=== PATIENT | male | born 2000 | race American Indian/Alaskan Native ===

== ENCOUNTER 2021-11-18 17:41 | Inpatient (IN) ==
--- NOTE | 2021-11-18 17:45 | Emergency Department Note ---
Impression & Plan Depression with suicidal ideation, Alcohol use ED Provider Note NAME: MISAEL HERNANDEZ AGE: 21 SEX: M : 2000 ARRIVES VIA: Walk-In INFORMANT: [Patient][, ] ED PROVIDER(S): [Javier King MD] Chief Complaint: Mental wellness HPI: Patient did present due to concern for mental wellness as the patient has had SI with plan to cut himself. The patient states that he has had a prior attempt in doing so with the intent to kill himself before. Patient was recently released from correction after 6-month stint in correction just this past Wednesday. The patient does have a roommate that he believes may have set some of this off as he is trying to "get back on track" but his roommate still wants to resort to his old ways. Patient does use alcohol and tobacco and does admit to drinking a few beers today. The patient denies any drug use. Patient states his sleep and appetite been poor. No HI. The patient has had auditory hallucinations of unrecognizable voices telling him to harm himself by cutting himself to kill himself. Patient denies any visual hallucinations. Patient does not have any access to guns or weapons. Patient is seeking inpatient treatment. The patient has been inpatient before. ROS: See HPI for pertinent positives and negatives. A total of 10 systems were reviewed and otherwise negative. Past medical history: See below Surgical history: See below Social history: See below Physical Exam: GENERAL: NAD, [wearing a mask,] non-toxic. EYE EXAM: Normal conjunctiva. PERRL, no anisocoria and EOM's grossly intact w/o pain. NECK: Supple, no nuchal rigidity, no adenopathy, non-tender. No signs of meningismus. LUNGS: Clear to auscultation. Normal chest wall mechanics. HEART: NSR, no MRG. ABDOMEN: Abdomen soft, non-tender, normo-active bowel sounds, no masses, no rebound or guarding. BACK: No CVA TTP. SKIN: No rashes and no bruising. UPPER EXTREMITIES: Upper extremities are grossly normal. LOWER EXTREMITIES: Grossly normal, no edema. NEURO EXAM: A&O x3, cranial nerves II-XII grossly intact, normal speech, moves all 4 extremities on command w/o issue. Psych: Positive SI with plan, negative HI, positive AH, negative VH. Differential diagnoses: Mood disorder, infection, hypoglycemia, electrolyte abnormalities, cardiac sources, intracerebral event, toxicologic, trauma, neurologic, as well as other pathologies. Course: Patient was seen and evaluated the bedside. Full history physical exam was performed. MDM: Patient was seen due to concern for mental wellness and was seeking inpatient treatment. Blood work was obtained the patient was he medically cleared he was seen evaluated by psych field nurse case manager. Patient was accepted for inpatient psychiatric treatment to [facility]. MRSA swab was obtained given the patient's recent incarceration. Past Med/Surg History Medical History Depression Surgical History No pertinent past surgical history Social History Smoking Status: Current every day smoker Preferred Language: Kiswahili Communication Ability: Effective Endoscope Technician Required: No Beliefs That Will Affect Care: None Feels Safe at Home: No Assistive Devices: None Allergies Allergies Allergy/AdvReac Type Severity Reaction Status Date / Time No Known Allergies Allergy Verified 11/18/21 20:39 Home Meds Home Medications Medication Instructions Recorded Confirmed No Known Home Medications 11/18/21 11/18/21 Results & Data (ED) Vital Signs Vital Signs - 24 hr 11/18/21 17:58 Temperature 36.9 C Temperature Source Temporal Artery Scan Pulse Rate 112 H Pulse Rhythm Regular Pulse Strength Normal Respiratory Rate 20 Respiratory Effort / Characteristics Non-Labored Spontaneous Respiratory Depth Normal Respiratory Pattern Regular Blood Pressure 129/77 Blood Pressure Mean 94 Blood Pressure Position Sitting Pulse Oximetry 96 Oxygen Delivery Method Room Air Sepsis Recent Fever Within 48 Hours No Sepsis New/Unexplained Change in Mental Status N/A Sepsis Action Taken by Nursing No Action Required Home Medications Current Medication List: was personally reviewed by me Laboratory Data Attestation: I reviewed the patient's lab results. Result diagrams: 11/18/21 18:36 11/18/21 18:36 Lab Results 11/18/21 11/18/21 11/18/21 Range/Units 18:05 18:05 18:20 WBC (4.8-10.8) K/uL RBC (4.7-6.1) M/uL Hgb (14.0-18.0) g/dL Hct (42-52) % MCV (80-100) fL MCH (25-34) pg MCHC (32-36) g/dL RDW Std Deviation (36.4-46.3) fL RDW Coeff of Hansa (11.5-14.5) % Plt Count (130-400) K/uL MPV (7.4-10.4) fL Immature Gran % (Auto) % Neut % (Auto) % Lymph % (Auto) % [place] % (Auto) % Eos % (Auto) % Baso % (Auto) % Neut # (Auto) (1.4-6.5) K/uL Lymph # (Auto) (1.2-3.4) K/uL [place] # (Auto) (0.11-0.59) K/uL Eos # (Auto) (0-0.5) K/uL Baso # (Auto) (0-0.2) K/uL Immature Gran # (Auto) (0.00-0.02) K/uL Sodium (136-145) mmol/L Potassium (3.5-5.1) mmol/L Chloride (98-107) mmol/L Carbon Dioxide (21-32) mmol/L Anion Gap (3-11) BUN (6-23) mg/dl Creatinine (0.6-1.4) mg/dl Est Cr Clr Drug Dosing ml/min Est GFR ( Amer) ml/min Est GFR (Non-Af Amer) ml/min BUN/Creatinine Ratio (10-20) Glucose (70-99(Fasting)) mg/dl Calcium (8.5-10.1) mg/dl Total Bilirubin (0.2-1.0) mg/dl AST (13-39) U/L ALT (7-52) U/L Alkaline Phosphatase (34-104) U/L Total Protein (6.0-8.3) gm/dl Albumin (3.4-5.0) gm/dl Globulin (2.5-4.0) gm/dl Albumin/Globulin Ratio (0.9-2) TSH (0.300-4.500) uIu/ml Urine Color Yellow Urine Appearance Clear (Clear) Urine pH 6.5 (4.5-7.5) Ur Specific [place] 1.015 (1.000-1.030) Urine Protein Negative (Negative) Urine Glucose (UA) Negative (Negative) Urine Ketones Negative (Negative) Urine Blood Negative (Negative) Urine Nitrite Negative (Negative) Urine Bilirubin Negative (Negative) Urine Urobilinogen Negative (Negative) Ur Leukocyte Esterase Negative (Negative) Salicylates (3.0-30) mg/dl Urine Opiates Screen Neg (Neg) Ur Methadone, Qual Neg (Neg) Acetaminophen (10-30) ug/ml Urine Barbiturates Neg (Neg) Ur Phencyclidine (PCP) Neg (Neg) U Amphetamin/Meth Scrn Neg (Neg) MDMA (Ecstasy) Screen Neg (Neg) U Benzodiazepines Scrn Neg (Neg) Ur Cocaine Metabolite Neg (Neg) U Marijuana (THC) Screen Pos H (Neg) Ethyl Alcohol mg/dL (<10.0) mg/dl SARS-CoV-2, RNA, NAAT NEGATIVE (NEGATIVE) 11/18/21 11/18/21 11/18/21 Range/Units 18:36 18:36 18:36 WBC 7.19 (4.8-10.8) K/uL RBC 5.02 (4.7-6.1) M/uL Hgb 15.6 (14.0-18.0) g/dL Hct 45.1 (42-52) % MCV 89.8 (80-100) fL MCH 31.1 (25-34) pg MCHC 34.6 (32-36) g/dL RDW Std Deviation 45.0 (36.4-46.3) fL RDW Coeff of Hansa 13.8 (11.5-14.5) % Plt Count 283 (130-400) K/uL MPV 10.3 (7.4-10.4) fL Immature Gran % (Auto) 0.1 % Neut % (Auto) 48.0 % Lymph % (Auto) 42.6 % [place] % (Auto) 6.5 % Eos % (Auto) 2.4 % Baso % (Auto) 0.4 % Neut # (Auto) 3.45 (1.4-6.5) K/uL Lymph # (Auto) 3.06 (1.2-3.4) K/uL [place] # (Auto) 0.47 (0.11-0.59) K/uL Eos # (Auto) 0.17 (0-0.5) K/uL Baso # (Auto) 0.03 (0-0.2) K/uL Immature Gran # (Auto) 0.01 (0.00-0.02) K/uL Sodium 139 (136-145) mmol/L Potassium 3.5 (3.5-5.1) mmol/L Chloride 106 (98-107) mmol/L Carbon Dioxide 25 (21-32) mmol/L Anion Gap 8 (3-11) BUN 14 (6-23) mg/dl Creatinine 0.91 (0.6-1.4) mg/dl Est Cr Clr Drug Dosing 129.5 ml/min Est GFR ( Amer) 139.1 ml/min Est GFR (Non-Af Amer) 120.0 ml/min BUN/Creatinine Ratio 15.4 (10-20) Glucose 109 H (70-99(Fasting)) mg/dl Calcium 8.9 (8.5-10.1) mg/dl Total Bilirubin 0.3 (0.2-1.0) mg/dl AST 50 H (13-39) U/L ALT 78 H (7-52) U/L Alkaline Phosphatase 76 (34-104) U/L Total Protein 6.9 (6.0-8.3) gm/dl Albumin 4.2 (3.4-5.0) gm/dl Globulin 2.7 (2.5-4.0) gm/dl Albumin/Globulin Ratio 1.6 (0.9-2) TSH 1.000 (0.300-4.500) uIu/ml Urine Color Urine Appearance (Clear) Urine pH (4.5-7.5) Ur Specific [place] (1.000-1.030) Urine Protein (Negative) Urine Glucose (UA) (Negative) Urine Ketones (Negative) Urine Blood (Negative) Urine Nitrite (Negative) Urine Bilirubin (Negative) Urine Urobilinogen (Negative) Ur Leukocyte Esterase (Negative) Salicylates (3.0-30) mg/dl Urine Opiates Screen (Neg) Ur Methadone, Qual (Neg) Acetaminophen (10-30) ug/ml Urine Barbiturates (Neg) Ur Phencyclidine (PCP) (Neg) U Amphetamin/Meth Scrn (Neg) MDMA (Ecstasy) Screen (Neg) U Benzodiazepines Scrn (Neg) Ur Cocaine Metabolite (Neg) U Marijuana (THC) Screen (Neg) Ethyl Alcohol mg/dL (<10.0) mg/dl SARS-CoV-2, RNA, NAAT (NEGATIVE) 11/18/21 11/18/21 Range/Units 18:36 18:36 WBC (4.8-10.8) K/uL RBC (4.7-6.1) M/uL Hgb (14.0-18.0) g/dL Hct (42-52) % MCV (80-100) fL MCH (25-34) pg MCHC (32-36) g/dL RDW Std Deviation (36.4-46.3) fL RDW Coeff of Hansa (11.5-14.5) % Plt Count (130-400) K/uL MPV (7.4-10.4) fL Immature Gran % (Auto) % Neut % (Auto) % Lymph % (Auto) % [place] % (Auto) % Eos % (Auto) % Baso % (Auto) % Neut # (Auto) (1.4-6.5) K/uL Lymph # (Auto) (1.2-3.4) K/uL [place] # (Auto) (0.11-0.59) K/uL Eos # (Auto) (0-0.5) K/uL Baso # (Auto) (0-0.2) K/uL Immature Gran # (Auto) (0.00-0.02) K/uL Sodium (136-145) mmol/L Potassium (3.5-5.1) mmol/L Chloride (98-107) mmol/L Carbon Dioxide (21-32) mmol/L Anion Gap (3-11) BUN (6-23) mg/dl Creatinine (0.6-1.4) mg/dl Est Cr Clr Drug Dosing ml/min Est GFR ( Amer) ml/min Est GFR (Non-Af Amer) ml/min BUN/Creatinine Ratio (10-20) Glucose (70-99(Fasting)) mg/dl Calcium (8.5-10.1) mg/dl Total Bilirubin (0.2-1.0) mg/dl AST (13-39) U/L ALT (7-52) U/L Alkaline Phosphatase (34-104) U/L Total Protein (6.0-8.3) gm/dl Albumin (3.4-5.0) gm/dl Globulin (2.5-4.0) gm/dl Albumin/Globulin Ratio (0.9-2) TSH (0.300-4.500) uIu/ml Urine Color Urine Appearance (Clear) Urine pH (4.5-7.5) Ur Specific [place] (1.000-1.030) Urine Protein (Negative) Urine Glucose (UA) (Negative) Urine Ketones (Negative) Urine Blood (Negative) Urine Nitrite (Negative) Urine Bilirubin (Negative) Urine Urobilinogen (Negative) Ur Leukocyte Esterase (Negative) Salicylates < 3.0 L (3.0-30) mg/dl Urine Opiates Screen (Neg) Ur Methadone, Qual (Neg) Acetaminophen < 3 L (10-30) ug/ml Urine Barbiturates (Neg) Ur Phencyclidine (PCP) (Neg) U Amphetamin/Meth Scrn (Neg) MDMA (Ecstasy) Screen (Neg) U Benzodiazepines Scrn (Neg) Ur Cocaine Metabolite (Neg) U Marijuana (THC) Screen (Neg) Ethyl Alcohol mg/dL 16.8 H (<10.0) mg/dl SARS-CoV-2, RNA, NAAT (NEGATIVE) Administered Medications Olanzapine (Olanzapine 5 Mg Tablet) 5 mg PO HS COUNT INCLUDES THE [facility] Stop: 12/19/21 20:59 Last Admin: 11/19/21 00:20 Dose: 5 mg Documented by: [id number] Discharge Plan Visit Data Chief Complaint: Mental Health Evaluation Stated Complaint: MENTAL HEALTH EVAL, SUICIDAL IDIATIONS ED Provider: Javier King Discharge Problem: Depression with suicidal ideation, Alcohol use Patient Disposition: Admitted As Inpatient Discharge Instructions Interventions: ED Discharge Assessment Last Done: 11/18/21 22:49
[2021-11-18 18:26] LABS: Appearance Urine Clear (Clear); Bilirubin Urine Negative (Negative); Blood Urine Negative (Negative); Color Urine Yellow; Glucose Urine UA Negative (Negative); Ketones Urine Negative (Negative); Leukocyte Esterase Urine Negative (Negative); Nitrite Urine Negative (Negative); Protein Urine Negative (Negative); Specific Gravity Urine 1.015 (1.000-1.030); Urobilinogen Urine Negative (Negative); pH Urine 6.5 (4.5-7.5)
[2021-11-18 18:50] LABS: Basophils # (auto) 0.03 K/uL (0-0.2); Basophils % (auto) 0.4 %; Eosinophils # (auto) 0.17 K/uL (0-0.5); Eosinophils % (auto) 2.4 %; Hematocrit (blood only) 45.1 % (42-52); Hemoglobin 15.6 g/dL (14.0-18.0); Immature Granulocytes # (auto) 0.01 K/uL (0.00-0.02); Immature Granulocytes % (auto) 0.1 %; Lymphocytes # (auto) 3.06 K/uL (1.2-3.4); Lymphocytes % (auto) 42.6 %; Mean Corpuscular Hemoglobin 31.1 pg (25-34); Mean Corpuscular Hgb Conc 34.6 g/dL (32-36); Mean Corpuscular Volume 89.8 fL (80-100); Mean Platelet Volume 10.3 fL (7.4-10.4); Monocytes # (auto) 0.47 K/uL (0.11-0.59); Monocytes % (auto) 6.5 %; Neutrophils # (auto) 3.45 K/uL (1.4-6.5); Platelet Count 283 K/uL (130-400); RDW Coefficient of Variation 13.8 % (11.5-14.5); Red Blood Count 5.02 M/uL (4.7-6.1); White Blood Count 7.19 K/uL (4.8-10.8)
[2021-11-18 18:54] LABS: Amphetamines+Metham, Urine Neg (Neg); Barbiturates, Urine Neg (Neg); Benzodiazepine, Urine Neg (Neg); Cocaine, Urine Neg (Neg); MDMA (Ecstacy), Urine Neg (Neg); Methadone, Urine Neg (Neg); Opiate, Urine Neg (Neg); Phencyclidine, Urine Neg (Neg)
[2021-11-18 19:09] LABS: Albumin Globulin Ratio 1.6 (0.9-2); Albumin Level 4.2 gm/dl (3.4-5.0); BUN Creatinine Ratio 15.4 (10-20); Bilirubin,Total 0.3 mg/dl (0.2-1.0); Calcium 8.9 mg/dl (8.5-10.1); Creatinine Clr Calc Pharmacy 129.5 ml/min; Est GFR (African American) 139.1 ml/min; Globulin 2.7 gm/dl (2.5-4.0); Potassium 3.5 mmol/L (3.5-5.1); Total Protein 6.9 gm/dl (6.0-8.3)
[2021-11-18 19:23] LABS: Acetaminophen < 3 ug/ml (10-30); Salicylate < 3.0 mg/dl (3.0-30)
[2021-11-18] MEDS ORDERED: SODIUM CHLORIDE 0.65% NA SOLN 45 ML (OCEAN) PRN (22:21)
[2021-11-18] MEDS ORDERED: MAGNESIUM HYDROXIDE SUSP 30 ML UDC PO PRN (22:21)
[2021-11-18] MEDS ORDERED: hydrOXYzine HCl 25 MG TAB PO PRN ×2 (22:21)
[2021-11-18] MEDS ORDERED: BISMUTH SUBSALICYLATE LIQD 236 ML PO PRN (22:21)
[2021-11-18] MEDS ORDERED: ACETAMINOPHEN 325 MG TAB PO PRN (22:21)
[2021-11-18] MEDS ORDERED: ALUMINUM/MAGNESIUM SUSP 30 ML UDC PO PRN (22:21)
[2021-11-19] MEDS ORDERED: FLUARIX QUADRIVALENT 0.5 ML SYR IM ONE (09:00)
--- NOTE | 2021-11-19 12:01 | History & Physical ---
Date of Service November 19, 2021 Impression / Recommendations Impression The patient is a 21 year old with a history of MDD, anxiety, BPD, PTSD, and psychosis who was admitted for worsening depression and SI with plans. Diagnostically consistent with BPD, PTSD and MDD likely worsened in context of transition out of detention with new stressors and his concerns related to not violating probation. No current psychosis symptoms, suspect symptoms may be due to BPD. Wellbutrin could be a good medication option in the future for ADHD and MDD but given binging episodes, not appropriate at this time. No evidence for history of romario, periods of decreased sleep but with no other symptoms of m destiney. Discussed treatment and medication options in detail he consented to starting prazosin and escitalopram. Reviewed benefits, risks and side effects including but not limited to low BP, syncope with prazosin and GI, BILLINGS, sexual side effects, potential for romario with escitalopram as well as counseled on black box warning of potential for emergence of or increased SI and need to let staff know should this occur or should they feel unsafe. Also discussed importance of seeking emergency care following discharge if this side effect occurs in the future. The patient is deemed unstable and requires psychiatric hospitalization for diagnostic clarification, safety and stabilization, medication management and development of further coping skills. (1) Depression with suicidal ideation: (2) MDD (major depressive disorder), recurrent episode, moderate: (3) Borderline personality disorder: (4) Post traumatic stress disorder (PTSD): 11/19/20: The patient was admitted to the [facility] ([facility]) on q15 min checks (behavioral with suicide precautions) for safety. The patient will participate in group, recreational, and milieu therapies and will be offered additional individual and family sessions as clinically appropriate. -interested and willing to apply for medical assistance -nicotine gum -prazosin 1mg qhs -trazodone 50mg qhs prn -escitalopram 5mg qd Inventory Assets Strengths: employed, supportive girlfriend Needs: outpatient providers, insurance, improved coping skills Risk Factors Assessment Male: Yes Do You Have Access To A Gun?: No Health Problems: No Mental Health Diagnoses: Yes Substance Use Disorders: No Previous Attempt: Yes Family History of Suicide: No Previous Psychiatric Hospitalization: Yes Hopelessness: Yes Smoker: Yes Protective Factors Assessment Employed: Yes ([employer]) Stable Relationships: Yes Supportive Family: No Psychiatric History Identifying Data MISAEL HERNANDEZ is a 21-year-old man who currently lives in [place] in an apartment with a roommate, was recently incarcerated (~6months, released on 11/11/21), has a history of depression, anxiety, ADHD, PTSD, BPD and psychosis, and was admitted on 11/18/21 22:19 on a 201 voluntary commitment for worsening depression and SI with plan. Chief Complaint "I've been really depressed". History of Present Illness Misael presented to the ED after recent release from detention with worsening depression and SI. He notes multiple stressors including living with a new jessica mmate since his release from detention and relying on this individual for transportation and being "dragged around" to places that made him feel uncomfortable and unsafe. He started to feel depressed, withdrawn and having suicidal thoughts. While in detention he was still depressed but it's gotten worse since his release. He feels the depression has really started since he was released. He endorses symptoms of hopelessness, social isolation, low energy, decreased sleep, decreased appetite, can still happy with music, and SI. The suicidal thoughts have been occurring for months but worsened over the last few days. He's been having plans of cutting himself, running into traffic, or jumping off of bridges and then "I check out and then get really visual and I play out the ways I would ". It usually lasts for about 10 minutes and happens multiple times through the day. Has had some rehearsal behaviors of standing on a bridge in [facility] and sat and looked down about 3 days ago. He came to [place] about 2-3 days ago to see his girlfriend and she was concerned and he worried about being able to remain safe so came to the ED. While in detention he was being prescribed trazodone, geodone and vistaril. He didn't feel like these were very helpful. Psychiatric ROS: + anxiety (past and current) with restlessness; denies any hx of romario (endorses poor sleep prior to admission but felt exhausted and "drained" and "weak"); hx of psychosis of AH and VH "not as much as it used to", denies current AH and VH, heard some voices while in detention (voices of unrecognizable people, negative in nature, can occur with any emotional state); + PTSD flashbacks (few times per month)/nightmares (few times per week)/emotional impact - hypervigilance; +ADHD inattention, - OCD, + restricting food and purging, + self-harm via cutting on his arms via razor blade or steak knife last two days ago. Past Psychiatric History Previous Psych History: reactive attachment disorder, bipolar depression, BPD, anxiety, ADHD, schizophrenia, PTSD Current Psychiatric Diagnosis: MDD Outpatient Services: none Previous Psych Admissions: about 6-7 prior psychiatric hospitalizations; April 2020 at [facility] for depression and suicide attempt Do You Have Access To A Gun?: No History of Previous Suicide Attempt: Yes (3 times; last in 04/2020; tried to overdose, tried hanging, tried cutting ) Describe Attempts in the Past: Hang self, cut wrists Past Medication Trials: can't recall but remembers abilify had bad reaction of restless; recalls Adderall was helpful for motivation and getting things done; tried zoloft in the past but didn't work Past Head Trauma/Neuro History History of Concussion/Seizure: No Allergies Allergy/AdvReac Type Severity Reaction Status Date / Time No Known Allergies Allergy Verified 11/18/21 20:39 Home Medications Medication Instructions Recorded Confirmed Type No Known Home Medications 11/18/21 11/18/21 History Family History Family History of: Doesn't Know (adopted, no psych hx in adoptive family) Alcohol History Hx of Alcohol Use Over the Past 12 Months: Yes (occassional, 2-4x/month, 3-4 drinks) AUDIT Total Score: 4 Drinking alcohol a few times per month; none in last 6 months while in [facility]; yesterday had one 4 loco; no hx of blackouts or DUI or complicated withdrawals Smoking Use Have You Smoked or Used Tobacco Products in the Last 30 Days: Yes tobacco type: cigarettes and e-cigarettes Smoking Status: Current every day smoker Smoking packs per day: 0.5 Substance History Hx of Prescription Med Misuse Over the Past 12 Months: No Hx of Over the Counter Med Misuse Over the Past 12 Months: No Hx of Inhalent Misuse Over the Past 12 Months: No Hx of Organic Substance Use Over the Past 12 Months: Yes (THC) Hx of Illegal Substances/Street Drug Use Over Past 12 Months: No Problems as a Result of Past Substance Use: None Identified no substance use recently except cannabis; in the past (1-2 years ago) opioid use of Percocet; no hx IVDU Personal History Living Arrangements: Apartment (in [place], [place]. 1 roommate) Childhood: Grew up in [place]. Adopted at age 16 months. Has no contact with biological or adoptive parents. Has an adoptive brother who he isn't in contact with. Highest Grade Completed: High School Graduate Employment Status: Communications Planner Employed Marital Status: Single (has a girlfriend, been together for about 8 months) Beliefs That Will Affect Care: None Current Legal Problems: Yes (his mother is attempting to press charges related to theft from one year ag) Hx Legal Problems: Yes (theft 2020; incarcerated for 6 mo released 11/11/21; 2018 6mo trespassing) Hx Traumatic Life Events: Yes Patient History Medical History Depression Surgical History No pertinent past surgical history Social History Smoking Status: Current every day smoker Preferred Language: Swedish Communication Ability: Effective Bridge Opener Required: No Beliefs That Will Affect Care: None Feels Safe at Home: No Assistive Devices: None Review of Systems Review of Systems: All systems reviewed & are unremarkable except as noted in HPI & below Physical Exam Psychiatric: Orientation: alert and oriented x 3 Apperance: appropriately dressed and appropriately groomed Eye Contact: + fair eye contact Motor Behavior: no abnormal motor movements Speech: normal rate/rhythm/volume of speech Affect: + depressed affect Mood: + depressed mood and + anxious mood Thought Process: goal directed thought process Thought Content: reality based without delusions Suicidal Thoughts: denies suicidal plan and denies suicidal intent; + reports suicidal thoughts (intermittent SI, feels safe in the hospital, safety contacts to alert staff) Homicidal Thoughts: denies homicidal thoughts Hallucinations: no auditory hallucinations and no visual hallucinations Cognition: recent memory grossly intact, remote memory grossly intact, attention grossly intact and language grossly intact Estimated Intelligence: + below average estimated intelligence Insight: + limited insight Judgement: + limited judgement Vital Signs (Past 24 Hours): Last Vital Signs Temp 36.3 C L 11/19/21 06:21 Pulse 86 11/19/21 06:22 Resp 16 11/19/21 06:21 BP 120/75 11/19/21 06:22 Pulse Ox 96 11/18/21 22:36 Exam Statement: A physical exam was performed in the ED by Dr. King for the purposes of medical clearance. I accept that physical as correct and adequate for the purposes of the inpatient physical exam. Results & Data ([facility]) Laboratory Results Laboratory Results - last 24 hr 11/18/21 11/18/21 11/18/21 18:05 18:05 18:05 WBC RBC Hgb Hct MCV MCH MCHC RDW Std Deviation RDW Coeff of Hansa Plt Count MPV Immature Gran % (Auto) Neut % (Auto) Lymph % (Auto) [place] % (Auto) Eos % (Auto) Baso % (Auto) Neut # (Auto) Lymph # (Auto) [place] # (Auto) Eos # (Auto) Baso # (Auto) Immature Gran # (Auto) Sodium Potassium Chloride Carbon Dioxide Anion Gap BUN Creatinine Est Cr Clr Drug Dosing Est GFR ( Amer) Est GFR (Non-Af Amer) BUN/Creatinine Ratio Glucose Calcium Total Bilirubin AST ALT Alkaline Phosphatase Total Protein Albumin Globulin Albumin/Globulin Ratio TSH Urine Color Yellow Urine Appearance Clear Urine pH 6.5 Ur Specific [place] 1.015 Urine Protein Negative Urine Glucose (UA) Negative Urine Ketones Negative Urine Blood Negative Urine Nitrite Negative Urine Bilirubin Negative Urine Urobilinogen Negative Ur Leukocyte Esterase Negative Nasal Screen MRSA (PCR) Salicylates Urine Opiates Screen Neg Ur Methadone, Qual Neg Acetaminophen Urine Barbiturates Neg Ur Phencyclidine (PCP) Neg U Amphetamin/Meth Scrn Neg MDMA (Ecstasy) Screen Neg U Benzodiazepines Scrn Neg Ur Cocaine Metabolite Neg U Marijuana (THC) Screen Pos H U Marijuana THC Carboxy Pending Drug Screen Comment Pending Ethyl Alcohol mg/dL SARS-CoV-2, RNA, NAAT 11/18/21 11/18/21 11/18/21 18:20 18:36 18:36 WBC 7.19 RBC 5.02 Hgb 15.6 Hct 45.1 MCV 89.8 MCH 31.1 MCHC 34.6 RDW Std Deviation 45.0 RDW Coeff of Hansa 13.8 Plt Count 283 MPV 10.3 Immature Gran % (Auto) 0.1 Neut % (Auto) 48.0 Lymph % (Auto) 42.6 [place] % (Auto) 6.5 Eos % (Auto) 2.4 Baso % (Auto) 0.4 Neut # (Auto) 3.45 Lymph # (Auto) 3.06 [place] # (Auto) 0.47 Eos # (Auto) 0.17 Baso # (Auto) 0.03 Immature Gran # (Auto) 0.01 Sodium 139 Potassium 3.5 Chloride 106 Carbon Dioxide 25 Anion Gap 8 BUN 14 Creatinine 0.91 Est Cr Clr Drug Dosing 129.5 Est GFR ( Amer) 139.1 Est GFR (Non-Af Amer) 120.0 BUN/Creatinine Ratio 15.4 Glucose 109 H Calcium 8.9 Total Bilirubin 0.3 AST 50 H ALT 78 H Alkaline Phosphatase 76 Total Protein 6.9 Albumin 4.2 Globulin 2.7 Albumin/Globulin Ratio 1.6 TSH Urine Color Urine Appearance Urine pH Ur Specific [place] Urine Protein Urine Glucose (UA) Urine Ketones Urine Blood Urine Nitrite Urine Bilirubin Urine Urobilinogen Ur Leukocyte Esterase Nasal Screen MRSA (PCR) Salicylates Urine Opiates Screen Ur Methadone, Qual Acetaminophen Urine Barbiturates Ur Phencyclidine (PCP) U Amphetamin/Meth Scrn MDMA (Ecstasy) Screen U Benzodiazepines Scrn Ur Cocaine Metabolite U Marijuana (THC) Screen U Marijuana THC Carboxy Drug Screen Comment Ethyl Alcohol mg/dL SARS-CoV-2, RNA, NAAT NEGATIVE 11/18/21 11/18/21 11/18/21 18:36 18:36 18:36 WBC RBC Hgb Hct MCV MCH MCHC RDW Std Deviation RDW Coeff of Hansa Plt Count MPV Immature Gran % (Auto) Neut % (Auto) Lymph % (Auto) [place] % (Auto) Eos % (Auto) Baso % (Auto) Neut # (Auto) Lymph # (Auto) [place] # (Auto) Eos # (Auto) Baso # (Auto) Immature Gran # (Auto) Sodium Potassium Chloride Carbon Dioxide Anion Gap BUN Creatinine Est Cr Clr Drug Dosing Est GFR ( Amer) Est GFR (Non-Af Amer) BUN/Creatinine Ratio Glucose Calcium Total Bilirubin AST ALT Alkaline Phosphatase Total Protein Albumin Globulin Albumin/Globulin Ratio TSH 1.000 Urine Color Urine Appearance Urine pH Ur Specific [place] Urine Protein Urine Glucose (UA) Urine Ketones Urine Blood Urine Nitrite Urine Bilirubin Urine Urobilinogen Ur Leukocyte Esterase Nasal Screen MRSA (PCR) Salicylates < 3.0 L Urine Opiates Screen Ur Methadone, Qual Acetaminophen < 3 L Urine Barbiturates Ur Phencyclidine (PCP) U Amphetamin/Meth Scrn MDMA (Ecstasy) Screen U Benzodiazepines Scrn Ur Cocaine Metabolite U Marijuana (THC) Screen U Marijuana THC Carboxy Drug Screen Comment Ethyl Alcohol mg/dL 16.8 H SARS-CoV-2, RNA, NAAT 11/18/21 23:08 WBC RBC Hgb Hct MCV MCH MCHC RDW Std Deviation RDW Coeff of Hansa Plt Count MPV Immature Gran % (Auto) Neut % (Auto) Lymph % (Auto) [place] % (Auto) Eos % (Auto) Baso % (Auto) Neut # (Auto) Lymph # (Auto) [place] # (Auto) Eos # (Auto) Baso # (Auto) Immature Gran # (Auto) Sodium Potassium Chloride Carbon Dioxide Anion Gap BUN Creatinine Est Cr Clr Drug Dosing Est GFR ( Amer) Est GFR (Non-Af Amer) BUN/Creatinine Ratio Glucose Calcium Total Bilirubin AST ALT Alkaline Phosphatase Total Protein Albumin Globulin Albumin/Globulin Ratio TSH Urine Color Urine Appearance Urine pH Ur Specific [place] Urine Protein Urine Glucose (UA) Urine Ketones Urine Blood Urine Nitrite Urine Bilirubin Urine Urobilinogen Ur Leukocyte Esterase Nasal Screen MRSA (PCR) Negative Salicylates Urine Opiates Screen Ur Methadone, Qual Acetaminophen Urine Barbiturates Ur Phencyclidine (PCP) U Amphetamin/Meth Scrn MDMA (Ecstasy) Screen U Benzodiazepines Scrn Ur Cocaine Metabolite U Marijuana (THC) Screen U Marijuana THC Carboxy Drug Screen Comment Ethyl Alcohol mg/dL SARS-CoV-2, RNA, NAAT Current Inpatient Medications Current Inpatient Medications: Current Inpatient Medications Acetaminophen (Acetaminophen 325 Mg Tab) 650 mg PO Q4H PRN PRN Reason: Headache or Minor Fever Stop: 12/18/21 22:20 Al Hydrox/Mg Hydrox/Simethicone (Aluminum/Magnesium Susp 30 Ml Udc) 30 ml PO Q4H PRN PRN Reason: GI Upset Stop: 12/18/21 22:20 Bismuth Subsalicylate (Bismuth Subsalicylate Liqd 236 Ml) 15 ml PO PRN PRN PRN Reason: Loose Stool Stop: 12/18/21 22:20 Hydroxyzine HCl (Hydroxyzine Hcl 25 Mg Tab) 50 mg PO HSZ PRN PRN Reason: Insomnia Stop: 12/18/21 22:20 Hydroxyzine HCl (Hydroxyzine Hcl 25 Mg Tab) 25 mg PO Q4H PRN PRN Reason: Anxiety Stop: 12/18/21 22:20 Magnesium Hydroxide (Magnesium Hydroxide Susp 30 Ml Udc) 30 ml PO DAILY PRN PRN Reason: Constipation Stop: 12/18/21 22:20 Olanzapine (Olanzapine 5 Mg Tablet) 5 mg PO HS CINDY Stop: 12/19/21 20:59 Last Admin: 11/19/21 00:20 Dose: 5 mg Documented by: Sodium Chloride (Sodium Chloride 0.65% Na Soln 45 Ml ([place])) 1 - 2 sprays NA PRN PRN PRN Reason: Nasal Dryness/Congestion Stop: 12/18/21 22:20
[2021-11-19] MEDS ORDERED: NICOTINE POLACRILEX 2 MG GUM MT PRN (12:45)
[2021-11-19] MEDS ORDERED: traZODone HCL 50 MG TAB PO PRN (12:45)
[2021-11-19] MEDS: ESCITALOPRAM OXALATE 10 MG TAB PO SCH (13:08)
[2021-11-19] MEDS: PRAZOSIN HCL 1 MG CAP PO SCH (20:59)
[2021-11-19] MEDS ORDERED: OLANZapine 5 MG TABLET PO SCH (21:00)
[2021-11-20] MEDS: ESCITALOPRAM OXALATE 10 MG TAB PO SCH (09:08)
--- NOTE | 2021-11-20 11:00 | Psychiatric Progress Note ---
Date of Service November 20, 2021 Impression / Recommendations Impression The patient is a 21 year old with a history of MDD, anxiety, BPD, PTSD, and psychosis who was admitted for worsening depression and SI with plans. Diagnostically consistent with BPD, PTSD and MDD likely worsened in context of transition out of care home with new stressors and his concerns related to not violating probation. No current psychosis symptoms, suspect symptoms may be due to BPD. Wellbutrin could be a good medication option in the future for ADHD and MDD but given binging episodes, not appropriate at this time. No evidence for history of romario, periods of decreased sleep but with no other symptoms of romario. Discussed treatment and medication options in detail he consented to starting prazosin and escitalopram. Reviewed benefits, risks and side effects including but not limited to low BP, syncope with prazosin and GI, BILLINGS, sexual side effects, potential for romario with escitalopram as well as counseled on black box warning of potential for emergence of or increased SI and need to let staff know should this occur or should they feel unsafe. Also discussed importance of seeking emergency care following discharge if this side effect occurs in the future. 11/20/21: possible delusions and flatter affect may suggest primary psychotic disorder but his experiences could also be related to cultural beliefs and no other evidence for acute psychosis currently. I also wonder if he may a processing learning disability vs cognitive effects from primary psychotic disorder. Remains very guarded, flat affect and withdrawn consistent with ongoing MDD and well as ongoing SI with periods of intrusive thoughts of plans. Remains able to engage with staff and willing to alert staff should he feel unsafe or unable to remain safe without support or should SI worsen. (1) Depression with suicidal ideation: (2) MDD (major depressive disorder), recurrent episode, moderate: (3) Borderline personality disorder: (4) Post traumatic stress disorder (PTSD): 11/20/21: Continue with prazosin, trazodone, escitalopram. Adding risperidone prn should any overt psychotic symptoms emerge. 11/19/20: The patient was admitted to the [facility] ([facility] unit) on q15 min checks (behavioral with suicide precautions) for safety. The patient will participate in group, recreational, and milieu therapies and will be offered additional individual and family sessions as clinically appropriate. -interested and willing to apply for medical assistance -nicotine gum -prazosin 1mg qhs -trazodone 50mg qhs prn -escitalopram 5mg qd Inventory Assets Strengths: employed, supportive girlfriend Needs: outpatient providers, insurance, improved coping skills Risk Factors Assessment Male: Yes Do You Have Access To A Gun?: No Health Problems: No Mental Health Diagnoses: Yes Substance Use Disorders: No Previous Attempt: Yes Family History of Suicide: No Previous Psychiatric Hospitalization: Yes Hopelessness: Yes Smoker: Yes Protective Factors Assessment Employed: Yes ([employer]) Stable Relationships: Yes Supportive Family: No Interval History Identifying Information MISAEL HERNANDEZ is a 21-year-old man who currently lives in [place] in an apartment with a roommate, was recently incarcerated (~6months, released on 11/11/21), has a history of depression, anxiety, ADHD, PTSD, BPD and psychosis, and was admitted on 11/18/21 22:19 on a 201 voluntary commitment for worsening depression and SI with plan. Chief Complaint "I'm depressed". Review of Systems Sleep Information Total Hours of Sleep: 8 Sleep Comments: pt on q-15 minute checks Meal Information Percent Meal Consumed - Breakfast: 100 Percent Meal Consumed - Lunch: 100 Percent Meal Consumed - Dinner: 75 Subjective Subjective Patient was seen & assessed and interval progress reviewed with treatment team nursing and social work. Misael remains guarded though did attend the groups. He reports sleeping well last night and has not experienced any side effects from the medications. Discussed his short and long-term goals. 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 Longer-term he hopes to enroll in college and study music production or demonology. Asked him to expand on demonology and he described that he has always been able to sense spirits and has had paranormal experiences since childhood which has made him interested in this. Currently he feels the unit has a mix of energy related to people feeling "depressed" like him and others who are putting out good energy from "finding their purpose in life". He continues to feel very depressed, in part due to feeling nervous he may violate his parole terms and end up back in the hospital. Encouraged him to reach out to his employee service officer to update them on his short-term hope of moving to [place]. Discussed that he left [facility] with a three day supply of medications but with no follow-up appointments so he ran out his medications and then has been off of them since then. He continues to have SI including more intrusive thoughts last night about hanging himself. He denies any intrusive thoughts or plans or intent today and continues to feel he can let staff know should these thoughts reoccur or should he need more support. Physical Exam Psychiatric Orientation: alert, oriented x 3 and + guarded Apperance: appropriately dressed and appropriately groomed Eye Contact: + poor eye contact Motor Behavior: no abnormal motor movements Speech: normal rate/rhythm/volume of speech Affect: + depressed affect and + flat affect Mood: + depressed mood and + anxious mood Thought Process: goal directed thought process Thought Content: + delusions (spirits/paranormal experiences? vs cultural belief ) Suicidal Thoughts: denies suicidal plan and denies suicidal intent; + reports suicidal thoughts (intermittent SI, feels safe in the hospital, safety contacts to alert staff) Homicidal Thoughts: denies homicidal thoughts Hallucinations: no auditory hallucinations and no visual hallucinations Cognition: recent memory grossly intact, remote memory grossly intact, attention grossly intact and language grossly intact Estimated Intelligence: + below average estimated intelligence Insight: + limited insight Judgement: + limited judgement Vital Signs (Past 24 Hours) Last Vital Signs Temp 36.8 C 11/20/21 06:00 Pulse 76 11/20/21 06:18 Resp 16 11/20/21 06:00 BP 111/70 11/20/21 06:18 Pulse Ox 96 11/18/21 22:36 Results & Data ([facility]) Current Inpatient Medications Current Inpatient Medications: Current Inpatient Medications Acetaminophen (Acetaminophen 325 Mg Tab) 650 mg PO Q4H PRN PRN Reason: Headache or Minor Fever Stop: 12/18/21 22:20 Al Hydrox/Mg Hydrox/Simethicone (Aluminum/Magnesium Susp 30 Ml Udc) 30 ml PO Q4H PRN PRN Reason: GI Upset Stop: 12/18/21 22:20 Bismuth Subsalicylate (Bismuth Subsalicylate Liqd 236 Ml) 15 ml PO PRN PRN PRN Reason: Loose Stool Stop: 12/18/21 22:20 Escitalopram Oxalate (Escitalopram Oxalate 10 Mg Tab) 5 mg PO QAM CINDY Stop: 12/19/21 12:59 Last Admin: 11/20/21 09:08 Dose: 5 mg Documented by: Hydroxyzine HCl (Hydroxyzine Hcl 25 Mg Tab) 50 mg PO HSZ PRN PRN Reason: Insomnia Stop: 12/18/21 22:20 Hydroxyzine HCl (Hydroxyzine Hcl 25 Mg Tab) 25 mg PO Q4H PRN PRN Reason: Anxiety Stop: 12/18/21 22:20 Magnesium Hydroxide (Magnesium Hydroxide Susp 30 Ml Udc) 30 ml PO DAILY PRN PRN Reason: Constipation Stop: 12/18/21 22:20 Nicotine Polacrilex (Nicotine Polacrilex 2 Mg Gum) 1 piece MT PRN PRN PRN Reason: nicotine cravings Stop: 12/19/21 12:44 Prazosin HCl (Prazosin Hcl 1 Mg Cap) 1 mg PO HS CINDY Stop: 12/19/21 21:59 Last Admin: 11/19/21 20:59 Dose: 1 mg Documented by: Sodium Chloride (Sodium Chloride 0.65% Na Soln 45 Ml ([place])) 1 - 2 sprays NA PRN PRN PRN Reason: Nasal Dryness/Congestion Stop: 12/18/21 22:20 Trazodone HCl (Trazodone Hcl 50 Mg Tab) 50 mg PO HS PRN PRN Reason: insomnia Stop: 12/19/21 21:59 Mental Health & Subst Abuse Tx Therapist Name of Therapist: none Stewardesses Teacher Name of Stewardesses Teacher: none Post Discharge Appointments Primary Care Physician Name Of Family Doctor: none
[2021-11-20] MEDS: risperiDONE 0.5 MG TABLET PO PRN (20:34)
[2021-11-20] MEDS: PRAZOSIN HCL 1 MG CAP PO SCH (21:22)
[2021-11-21] MEDS: ESCITALOPRAM OXALATE 10 MG TAB PO SCH (08:37)
[2021-11-21] MEDS: risperiDONE 0.5 MG TABLET PO PRN (10:38)
[2021-11-21 11:55] LABS: Marijuana Quant, GCMS Urine 552 ng/mL (<5)
--- NOTE | 2021-11-21 14:41 | Psychiatric Progress Note ---
Date of Service November 21, 2021 Impression / Recommendations Impression The patient is a 21 year old with a history of MDD, anxiety, BPD, PTSD, and psychosis who was admitted for worsening depression and SI with plans. Diagnostically consistent with BPD, PTSD and MDD likely worsened in context of transition out of senior living with new stressors and his concerns related to not violating probation. No current psychosis symptoms, suspect symptoms may be due to BPD. Wellbutrin could be a good medication option in the future for ADHD and MDD but given binging episodes, not appropriate at this time. No evidence for history of romario, periods of decreased sleep but with no other symptoms of romario. Discussed treatment and medication options in detail he consented to starting prazosin and escitalopram. Reviewed benefits, risks and side effects including but not limited to low BP, syncope with prazosin and GI, BILLINGS, sexual side effects, potential for romario with escitalopram as well as counseled on black box warning of potential for emergence of or increased SI and need to let staff know should this occur or should they feel unsafe. Also discussed importance of seeking emergency care following discharge if this side effect occurs in the future. 11/21/21: experiencing increased command AH in the context of being told he cannot move to [place] with his girlfriend as terms of his parole. Suspect there may be some secondary gain aspects to his symptoms versus limited coping skills and BPD with increased distress due to parole terms. He is tolerating the prn risperidone and agrees to scheduled risperidone. Reviewed side effects including but not limited to metabolic and movement (TD) risks. He agrees to fasting lipid and glucose labs and AIMS score of 0. He also consents to further titration of lexapro to target depression. Suspect large component from BPD and limited coping skills so will continue to focus on therapeutic interventions related to this. Remains able to engage with staff and willing to alert staff should he feel unsafe or unable to remain safe without support or should SI worsen. (1) Depression with suicidal ideation: (2) MDD (major depressive disorder), recurrent episode, moderate: (3) Borderline personality disorder: (4) Post traumatic stress disorder (PTSD): 11/21/21: Risperidone 1mg BID for worsening AH. Fasting glcuose and lipid panel tomorrow morning. Increase escitalopram to 10mg qd. 11/20/21: Continue with prazosin, trazodone, escitalopram. Adding risperidone prn should any overt psychotic symptoms emerge. 11/19/20: The patient was admitted to the [facility] ([facility] inpatient mental health unit) on q15 min checks (behavioral with suicide precautions) for safety. The patient will participate in group, recreational, and milieu therapies and will be offered additional individual and family sessions as clinically appropriate. -interested and willing to apply for medical assistance -nicotine gum -prazosin 1mg qhs -trazodone 50mg qhs prn -escitalopram 5mg qd Inventory Assets Strengths: employed, supportive girlfriend Needs: outpatient providers, insurance, improved coping skills Risk Factors Assessment Male: Yes Do You Have Access To A Gun?: No Health Problems: No Mental Health Diagnoses: Yes Substance Use Disorders: No Previous Attempt: Yes Family History of Suicide: No Previous Psychiatric Hospitalization: Yes Hopelessness: Yes Smoker: Yes Protective Factors Assessment Employed: Yes ([employer]) Stable Relationships: Yes Supportive Family: No Interval History Identifying Information MISAEL HERNANDEZ is a 21-year-old man who currently lives in [place] in an apartment with a roommate, was recently incarcerated (~6months, released on 11/11/21), has a history of depression, anxiety, ADHD, PTSD, BPD and psychosis, and was admitted on 11/18/21 22:19 on a 201 voluntary commitment for worsening depression and SI with plan. Chief Complaint "I don't know if I'll be able to keep from cutting myself if I go back to [facility]". Review of Systems Sleep Information Total Hours of Sleep: 7.5 Sleep Comments: pt on q-15 minute checks Meal Information Percent Meal Consumed - Breakfast: 100 Percent Meal Consumed - Lunch: 100 Percent Meal Consumed - Dinner: 100 Subjective Subjective Patient was seen & assessed and interval progress reviewed with treatment team nursing and social work. Last night after talking with his optics technical officer on the phone he started to experience voices telling him "you need to " and "you should break the window and jump out to " and required staff support as he was head banging. He also experienced SI last night. Today he denies SI but states his concern that if he has to go back to [place] that he may engage in self-harm via cutting. Reviewed that at this point his optics technical officer has told him and us that he must present at her office on Wednesday in [facility] and must continue to live in his approved housing in [place] as part of his parole te flora. Reviewed importance of continuing to work on safety planning and development of coping skills so that he will additional skills to use should he feel distressed. He continues to experience intermittent voices and finds that the risperidone helps. Discussed scheduling this which he agrees to. He continues to tolerate his medications without any side effects. Physical Exam Psychiatric Orientation: alert and oriented x 3 Apperance: appropriately dressed and appropriately groomed Eye Contact: + poor eye contact Motor Behavior: no abnormal motor movements Speech: normal rate/rhythm/volume of speech Affect: + depressed affect Mood: + depressed mood and + anxious mood Thought Process: goal directed thought process Thought Content: reality based without delusions Suicidal Thoughts: denies suicidal plan and denies suicidal intent; + reports suicidal thoughts (intermittent SI, feels safe in the hospital, safety contacts to alert staff) Homicidal Thoughts: denies homicidal thoughts Hallucinations: + auditory hallucinations (intermittent command AH telling him to hurt himself); no visual hallucinations Cognition: recent memory grossly intact, remote memory grossly intact, attention grossly intact and language grossly intact Estimated Intelligence: + below average estimated intelligence Insight: + limited insight Judgement: + limited judgement Vital Signs (Past 24 Hours) Last Vital Signs Temp 36.8 C 11/21/21 06:00 Pulse 102 H 11/21/21 06:27 Resp 16 11/21/21 06:00 BP 107/67 11/21/21 06:27 Pulse Ox 96 11/18/21 22:36 Results & Data ([facility]) Laboratory Results Laboratory Results - last 24 hr 11/18/21 18:05 U Marijuana THC Carboxy 552 H Drug Screen Comment SEE NOTE Current Inpatient Medications Current Inpatient Medications: Current Inpatient Medications Acetaminophen (Acetaminophen 325 Mg Tab) 650 mg PO Q4H PRN PRN Reason: Headache or Minor Fever Stop: 12/18/21 22:20 Al Hydrox/Mg Hydrox/Simethicone (Aluminum/Magnesium Susp 30 Ml Udc) 30 ml PO Q4H PRN PRN Reason: GI Upset Stop: 12/18/21 22:20 Bismuth Subsalicylate (Bismuth Subsalicylate Liqd 236 Ml) 15 ml PO PRN PRN PRN Reason: Loose Stool Stop: 12/18/21 22:20 Escitalopram Oxalate (Escitalopram Oxalate 10 Mg Tab) 10 mg PO QAM CINDY Stop: 12/22/21 08:59 Hydroxyzine HCl (Hydroxyzine Hcl 25 Mg Tab) 50 mg PO HSZ PRN PRN Reason: Insomnia Stop: 12/18/21 22:20 Hydroxyzine HCl (Hydroxyzine Hcl 25 Mg Tab) 25 mg PO Q4H PRN PRN Reason: Anxiety Stop: 12/18/21 22:20 Last Admin: 11/21/21 10:38 Dose: 25 mg Documented by: Magnesium Hydroxide (Magnesium Hydroxide Susp 30 Ml Udc) 30 ml PO DAILY PRN PRN Reason: Constipation Stop: 12/18/21 22:20 Nicotine Polacrilex (Nicotine Polacrilex 2 Mg Gum) 1 piece MT PRN PRN PRN Reason: nicotine cravings Stop: 12/19/21 12:44 Prazosin HCl (Prazosin Hcl 1 Mg Cap) 1 mg PO HS CINDY Stop: 12/19/21 21:59 Last Admin: 11/20/21 21:22 Dose: 1 mg Documented by: Risperidone (Risperidone 0.5 Mg Tablet) 0.5 mg PO Q6H PRN PRN Reason: Anxiety/Agitation Stop: 12/20/21 14:26 Last Admin: 11/21/21 10:38 Dose: 0.5 mg Documented by: Risperidone (Risperidone 1 Mg Tablet) 1 mg PO BID CINDY Stop: 12/21/21 20:59 Sodium Chloride (Sodium Chloride 0.65% Na Soln 45 Ml ([facility])) 1 - 2 sprays NA PRN PRN PRN Reason: Nasal Dryness/Congestion Stop: 12/18/21 22:20 Trazodone HCl (Trazodone Hcl 50 Mg Tab) 50 mg PO HS PRN PRN Reason: insomnia Stop: 12/19/21 21:59 Mental Health & Subst Abuse Tx Therapist Name of Therapist: none Engineering Aid Name of Engineering Aid: none Post Discharge Appointments Primary Care Physician Name Of Family Doctor: none
[2021-11-21] MEDS: PRAZOSIN HCL 1 MG CAP PO SCH (20:04)
[2021-11-21] MEDS: risperiDONE 1 MG TABLET PO SCH (20:04)
[2021-11-22 08:59] LABS: Chol HDL Ratio 3.1 (0-5)
[2021-11-22] MEDS ORDERED: ESCITALOPRAM OXALATE 10 MG TAB PO SCH (09:00)
[2021-11-22] MEDS: risperiDONE 1 MG TABLET PO SCH (09:03)
--- NOTE | 2021-11-22 10:31 | Discharge Summary ---
Date of Service November 22, 2021 History of Present Illness As per Dr. Boogie on admission: Jefferson presented to the ED after recent release from intermediate with worsening depression and SI. He notes multiple stressors including living with a new roommate since his release from intermediate and relying on this individual for transportation and being "dragged around" to places that made him feel uncomfortable and unsafe. He started to feel depressed, withdrawn and having suicidal thoughts. While in intermediate he was still depressed but it's gotten worse since his release. He feels the depression has really started since he was released. He endorses symptoms of hopelessness, social isolation, low energy, decreased sleep, decreased appetite, can still happy with music, and SI. The suicidal thoughts have been occurring for months but worsened over the last few days. He's been having plans of cutting himself, running into traffic, or jumping off of bridges and then "I check out and then get really visual and I play out the ways I would ". It usually lasts for about 10 minutes and happens multiple times through the day. Has had some rehearsal behaviors of standing on a bridge in [facility] and sat and looked down about 3 days ago. He came to [place] about 2-3 days ago to see his girlfriend and she was concerned and he worried about being able to remain safe so came to the ED. While in intermediate he was being prescribed trazodone, geodone and vistaril. He didn't feel like these were very helpful. Psychiatric ROS: + anxiety (past and current) with restlessness; denies any hx of romario (endorses poor sleep prior to admission but felt exhausted and "drained" and "weak"); hx of psychosis of AH and VH "not as much as it used to", denies current AH and VH, heard some voices while in intermediate (voices of unrecognizable people, negative in nature, can occur with any emotional state); + PTSD flashbacks (few times per month)/nightmares (few times per week)/emotional impact - hypervigilance; +ADHD inattention, - OCD, + restricting food and purging, + self-harm via cutting on his arms via razor blade or steak knife last two days ago. Physical Exam Psychiatric See admission H&P and DOD assessment. Vital Signs (Past 24 Hours) Last Vital Signs Temp 36.9 C 11/22/21 09:43 Pulse 80 11/22/21 09:43 Resp 16 11/22/21 09:43 BP 139/69 11/22/21 09:43 Pulse Ox 96 11/22/21 09:43 Principal Diagnosis Major depressive disorder Psychiatric Data See daily stay summary. In short, safety was maintained and the patient was cooperative with care. Medication changes included initiation of Lexapro, Abilify and prazosin and they tolerated this well. The patient's chief procurement officer was notified/involved with phone contact with patient and social work during his stay. The patient denies suicidal thoughts for >24 hours and is requesting discharge. He is now minimizing his "voices" 2 nights ago and I agree with Dr. Boogie's assessment that they were in the context of limited coping skills and not getting what he wanted with regards to moving counties so likely some secondary gain and more consistent with borderline personality diagnosis than worsening of psychosis, regardless Risperdal to add some mood stabilization and has been shown to decrease impulsivity in personality disorder. I expressed concern that he does not have follow up appointments confirmed and has a history of not picking up medication per PO. He stated he and his PO a venkat discussed rescheduling his appointment with [employer] and he agreed to call Kiran re: finishing his MA application. Staff are providing info re: Good RX and pharmacist was given directions to split dispensing of his medication to 10 day supplies so more affordable. Risperdal was dispensed as a 2 mg tab so he can split and save on # of tabs and he voiced good understanding of this and was thankful. A safety plan was completed prior to discharge. He is also focussed on discharge today as needs a ride back to [place] tomorrow to meet with PO on 11/24/21. Day of Discharge Assessment Today the patient voices readiness for discharge. "My thoughts are straightened out." They note improvement in mood and deny thoughts to harm self or others. Thoughts remain organized and they are improved from admission. There is no evidence of psychosis. They agree to take mediations as prescribed and keep follow-up appointments. They are stable for discharge to outpatient level of care. Transition of Care Transition Of Care Record: was reviewed with the patient Advance Directives Advance Directives Information Provided: Yes Advance Directives: No Mental Health Advance Directive: No Advance Directives on File: No Living Will: No Power of Global Project Manager: No Advance Directives Reason:: Declines as Mental Health Visit. Risk Factors Assessment Male: Yes Do You Have Access To A Gun?: No Health Problems: No Mental Health Diagnoses: Yes Substance Use Disorders: No Previous Attempt: Yes Family History of Suicide: No Previous Psychiatric Hospitalization: Yes Hopelessness: Yes Smoker: Yes Protective Factors Assessment Employed: Yes ([employer] Stable Relationships: Yes Supportive Family: No Tobacco Cessation at Discharge Tobacco Cessation Medication Prescribed at Discharge: Offered & Pt Refused Total Time Total Time Spent: Greater Than 30 Minutes Total Time Includes: Medication Reconciliation Discharge Data Lab Results 11/18/21 11/18/21 11/18/21 18:05 18:05 18:05 WBC RBC Hgb Hct MCV MCH MCHC RDW Std Deviation RDW Coeff of Hansa Plt Count MPV Immature Gran % (Auto) Neut % (Auto) Lymph % (Auto) Clinton % (Auto) Eos % (Auto) Baso % (Auto) Neut # (Auto) Lymph # (Auto) Clinton # (Auto) Eos # (Auto) Baso # (Auto) Immature Gran # (Auto) Sodium Potassium Chloride Carbon Dioxide Anion Gap BUN Creatinine Est Cr Clr Drug Dosing Est GFR ( Amer) Est GFR (Non-Af Amer) BUN/Creatinine Ratio Glucose Fasting Glucose Calcium Total Bilirubin AST ALT Alkaline Phosphatase Total Protein Albumin Globulin Albumin/Globulin Ratio Triglycerides Cholesterol LDL Cholesterol, Calc VLDL Cholesterol, Calc HDL Cholesterol Cholesterol/HDL Ratio TSH Urine Color Yellow Urine Appearance Clear Urine pH 6.5 Ur Specific [place] 1.015 Urine Protein Negative Urine Glucose (UA) Negative Urine Ketones Negative Urine Blood Negative Urine Nitrite Negative Urine Bilirubin Negative Urine Urobilinogen Negative Ur Leukocyte Esterase Negative Nasal Screen MRSA (PCR) Salicylates Urine Opiates Screen Neg Ur Methadone, Qual Neg Acetaminophen Urine Barbiturates Neg Ur Phencyclidine (PCP) Neg U Amphetamin/Meth Scrn Neg MDMA (Ecstasy) Screen Neg U Benzodiazepines Scrn Neg Ur Cocaine Metabolite Neg U Marijuana (THC) Screen Pos H U Marijuana THC Carboxy 552 H Drug Screen Comment SEE NOTE Ethyl Alcohol mg/dL SARS-CoV-2, RNA, NAAT 11/18/21 11/18/21 11/18/21 18:20 18:36 18:36 WBC 7.19 RBC 5.02 Hgb 15.6 Hct 45.1 MCV 89.8 MCH 31.1 MCHC 34.6 RDW Std Deviation 45.0 RDW Coeff of Hansa 13.8 Plt Count 283 MPV 10.3 Immature Gran % (Auto) 0.1 Neut % (Auto) 48.0 Lymph % (Auto) 42.6 Clinton % (Auto) 6.5 Eos % (Auto) 2.4 Baso % (Auto) 0.4 Neut # (Auto) 3.45 Lymph # (Auto) 3.06 Clinton # (Auto) 0.47 Eos # (Auto) 0.17 Baso # (Auto) 0.03 Immature Gran # (Auto) 0.01 Sodium 139 Potassium 3.5 Chloride 106 Carbon Dioxide 25 Anion Gap 8 BUN 14 Creatinine 0.91 Est Cr Clr Drug Dosing 129.5 Est GFR ( Amer) 139.1 Est GFR (Non-Af Amer) 120.0 BUN/Creatinine Ratio 15.4 Glucose 109 H Fasting Glucose Calcium 8.9 Total Bilirubin 0.3 AST 50 H ALT 78 H Alkaline Phosphatase 76 Total Protein 6.9 Albumin 4.2 Globulin 2.7 Albumin/Globulin Ratio 1.6 Triglycerides Cholesterol LDL Cholesterol, Calc VLDL Cholesterol, Calc HDL Cholesterol Cholesterol/HDL Ratio TSH Urine Color Urine Appearance Urine pH Ur Specific [place] Urine Protein Urine Glucose (UA) Urine Ketones Urine Blood Urine Nitrite Urine Bilirubin Urine Urobilinogen Ur Leukocyte Esterase Nasal Screen MRSA (PCR) Salicylates Urine Opiates Screen Ur Methadone, Qual Acetaminophen Urine Barbiturates Ur Phencyclidine (PCP) U Amphetamin/Meth Scrn MDMA (Ecstasy) Screen U Benzodiazepines Scrn Ur Cocaine Metabolite U Marijuana (THC) Screen U Marijuana THC Carboxy Drug Screen Comment Ethyl Alcohol mg/dL SARS-CoV-2, RNA, NAAT NEGATIVE 11/18/21 11/18/21 11/18/21 18:36 18:36 18:36 WBC RBC Hgb Hct MCV MCH MCHC RDW Std Deviation RDW Coeff of Hansa Plt Count MPV Immature Gran % (Auto) Neut % (Auto) Lymph % (Auto) Clinton % (Auto) Eos % (Auto) Baso % (Auto) Neut # (Auto) Lymph # (Auto) Clinton # (Auto) Eos # (Auto) Baso # (Auto) Immature Gran # (Auto) Sodium Potassium Chloride Carbon Dioxide Anion Gap BUN Creatinine Est Cr Clr Drug Dosing Est GFR ( Amer) Est GFR (Non-Af Amer) BUN/Creatinine Ratio Glucose Fasting Glucose Calcium Total Bilirubin AST ALT Alkaline Phosphatase Total Protein Albumin Globulin Albumin/Globulin Ratio Triglycerides Cholesterol LDL Cholesterol, Calc VLDL Cholesterol, Calc HDL Cholesterol Cholesterol/HDL Ratio TSH 1.000 Urine Color Urine Appearance Urine pH Ur Specific [place] Urine Protein Urine Glucose (UA) Urine Ketones Urine Blood Urine Nitrite Urine Bilirubin Urine Urobilinogen Ur Leukocyte Esterase Nasal Screen MRSA (PCR) Salicylates < 3.0 L Urine Opiates Screen Ur Methadone, Qual Acetaminophen < 3 L Urine Barbiturates Ur Phencyclidine (PCP) U Amphetamin/Meth Scrn MDMA (Ecstasy) Screen U Benzodiazepines Scrn Ur Cocaine Metabolite U Marijuana (THC) Screen U Marijuana THC Carboxy Drug Screen Comment Ethyl Alcohol mg/dL 16.8 H SARS-CoV-2, RNA, NAAT 11/18/21 11/22/21 23:08 08:18 WBC RBC Hgb Hct MCV MCH MCHC RDW Std Deviation RDW Coeff of Hansa Plt Count MPV Immature Gran % (Auto) Neut % (Auto) Lymph % (Auto) [place] % (Auto) Eos % (Auto) Baso % (Auto) Neut # (Auto) Lymph # (Auto) [place] # (Auto) Eos # (Auto) Baso # (Auto) Immature Gran # (Auto) Sodium Potassium Chloride Carbon Dioxide Anion Gap BUN Creatinine Est Cr Clr Drug Dosing Est GFR ( Amer) Est GFR (Non-Af Amer) BUN/Creatinine Ratio Glucose Fasting Glucose 99 Calcium Total Bilirubin AST ALT Alkaline Phosphatase Total Protein Albumin Globulin Albumin/Globulin Ratio Triglycerides 143 Cholesterol 152 LDL Cholesterol, Calc 74 VLDL Cholesterol, Calc 29 HDL Cholesterol 49 Cholesterol/HDL Ratio 3.1 TSH Urine Color Urine Appearance Urine pH Ur Specific [place] Urine Protein Urine Glucose (UA) Urine Ketones Urine Blood Urine Nitrite Urine Bilirubin Urine Urobilinogen Ur Leukocyte Esterase Nasal Screen MRSA (PCR) Negative Salicylates Urine Opiates Screen Ur Methadone, Qual Acetaminophen Urine Barbiturates Ur Phencyclidine (PCP) U Amphetamin/Meth Scrn MDMA (Ecstasy) Screen U Benzodiazepines Scrn Ur Cocaine Metabolite U Marijuana (THC) Screen U Marijuana THC Carboxy Drug Screen Comment Ethyl Alcohol mg/dL SARS-CoV-2, RNA, NAAT Hospital Course (1) Depression with suicidal ideation: (2) MDD (major depressive disorder), recurrent episode, moderate: (3) Borderline personality disorder: (4) Post traumatic stress disorder (PTSD): 11/21/21: Risperidone 1mg BID for worsening AH. Fasting glcuose and lipid panel tomorrow morning. Increase escitalopram to 10mg qd. 11/20/21: Continue with prazosin, trazodone, escitalopram. Adding risperidone prn should any overt psychotic symptoms emerge. 11/19/20: The patient was admitted to the [facility] ([facility] health [facility]) on q15 min checks (behavioral with suicide precautions) for safety. The patient will participate in group, recreational, and milieu therapies and will be offered additional individual and family sessions as clinically appropriate. -interested and willing to apply for medical assistance -nicotine gum -prazosin 1mg qhs -trazodone 50mg qhs prn -escitalopram 5mg qd Mental Health & Subst Abuse Tx Psychiatrist Name of Psychiatrist: None. Therapist Name of Therapist: none Insurance Administrative Assistant Name of Insurance Administrative Assistant: none Post Discharge Appointments Primary Care Physician Name Of Family Doctor: [facility] Primary Care Time of Appointment with PCP: Follow up as needed for medical care. Provider Appointment Comment: [address] [place] [address] [address], [place] [address] Smoking Cessation Counseling Tobacco Cessation Medication Prescribed at Discharge: Offered & Pt Refused Tobacco Cessation Counseling: Offered and Refused Other #1: Name of Aftercare Appointment: [facility] Assistance Office Phone Number of Aftercare Appointment: [phone] Time of Aftercare Appointment: Follow up for assistance with applying for health insurance. Aftercare Appointment Comment: [address] [place] [address] [place] [address] #2: Name of Aftercare Appointment: Crisis [facility]: [facility] Phone Number of Aftercare Appointment: Time of Aftercare Appointment: Call if in mental health crisis. Aftercare Appointment Comment: [address] [facility] [place] [address] Contact Information Discharge Phone Number: N/A Discharge [address]: [address] [place] [id number] Discharge Plan Discharge Items Patient Disposition: Home - Self-Care Reason For Visit: MDD Discharge Diagnosis: Major Depressive Disorder Activity: Resume your previous activity Non-emergency contact: Primary Care Provider and Hat Body Inspector Call non-emergency contact if: you have any medication questions and your symptoms worsen Follow-up/Referrals: PCP,DAPHNIE [Primary Care Provider] - Diet: Regular Addtl Attending Provider Instructions: Please follow up with a call to reschedule your appointment with Tammie CASSIDY correctional case records supervisor and Leda about medical assistance application. You are leaving on a weekend so you are able to travel to your home county and attend your meeting with PO on 11/24/21. We are not able to confirm therapy and medication management appointments for you as offices are closed and you do not have active insurance. As you have limited funds, your pharmacist ([facility] [place]) was directed to break up the prescription into smaller amounts if needed. Any remain tabs could be transferred to another [facility] pharmacy ([place]). SPECIAL CARE INSTRUCTIONS: 1. Follow through with your scheduled aftercare appointments. If unable to keep an appointment, please call to reschedule. 2. Take your medication only as prescribed. Medication should not be changed or stopped without the approval of your doctor. In the event of worsening symptoms or concerns about side effects, contact your doctor immediately. 3. Utilize new healthy coping skills, anger management skills, and stress management skills learned during your hospitalization. Journal feelings and process them with a support person. Identify stressors or situations that may result in relapse, deterioration or inappropriate behaviors and develop a plan to deal with those issues. 4. If your coping skills are ineffective and you are in crisis, contact your outpatient providers for direction. If unable to reach your providers, please call the [facility] CRISIS LINE AT , go to the [facility] walk-in center at [address], [address], [place], or go to the closest Emergency Room. 5. Avoid alcohol and un-prescribed drugs. 6. You have been provided with the Mental Health Advance Directives Pamphlet for your review. 7. Your condition is stable for discharge to outpatient level of care, but recovery is an ongoing process. Ifthoughts to harm yourself or others return, follow the safety plan developed during your stay. Planning for a safe return home includes securing weapons. Our treatment team recommends weaponsbe removed from the home until your outpatient provider reassesses your progress. In rare cases where the items themselvescannot be removed, guns and ammunitionshould be secured separatelyand keys stored by a reliable personoutside of the home. If you were admitted on an involuntary commitment, the police or other legal authorities may be involved in this process. AFTERCARE APPOINTMENTS: * Please call your insurance company prior to your scheduled appointment to confirm your aftercare providers are covered. Take your insurance information to your appointments. WHO TO CALL AND WHEN: Medical Emergencies: For questions or emergencies related to your hospital stay, please contact the Inpatient Behavioral Health Unit at [phone]. A tour bus driver is on-call 03/05 for the Behavioral Health Unit for emergencies At any time you feel your situation is an emergency, you may also call 911 immediately. Pending Studies at Discharge: No Stand-Alone Forms: My [facility] [employer], Smoking Cessation Medications and DC Order Prescriptions: New prazosin 1 mg Capsule 1 mg PO HS 30 Days Qty: 30 RF: 0 escitalopram oxalate 10 mg Tablet 10 mg PO QAM 30 Days Qty: 30 RF: 0 risperidone 2 mg tablet 1 mg PO BID 30 Days Qty: 30 RF: 0 Discharge Orders: Discharge Order (Routine); Ordered 11/22/21 Ordered By: Jacki Pierson Admission Data Admit Date/Time: 11/18/21 22:19 Attending Provider: Jacki Pierson Admit Provider: Shelia Boogie Primary Care Provider: PCP,NO Other Interventions: Discharge Summary Assessment (RN) Last Done: 11/22/21 09:43 PSY Interdisciplinary Discharge Planning Last Done: 11/22/21 09:43 Coding Level of Care Code 04627 D/C day mgmt > 30 min Diagnoses Depression with suicidal ideation F32.A; R45.851 MDD (major depressive disorder), recurrent episode, moderate F33.1 Borderline personality disorder F60.3 Post traumatic stress disorder (PTSD) F43.10
== END 2021-11-22 11:00 | disposition home or self-care (01) | DRG 885 ==
LOC: ED 17:41 → 3S 22:19 → SUATTDRO 22:19 → 3S 22:49